=== PATIENT | female | born 1950 | race Hispanic/Latino ===

== ENCOUNTER 2017-01-28 15:07 | Emergency (ER) | payer MEDICARE, OTHER ==
[2017-01-28 15:13] VITALS: BP 130/85; PULSE 95; RESP 20; TEMP 98.3; O2SAT 100
--- NOTE | 2017-01-28 15:43 | C.PDOC ---
History Of Present Illness 66 year old female presents to the ED with complaints of yellow mucus, headache , dizziness, lethargy, and facial pain beginning two days ago. Patient states pain worsens with certain head movements. She also reports foul odor within her nose and mucus. Patient statates she went to her car bracer two days prior and had blood taken and waiting on the results of the blood work. She denies any fever, vomiting, or any other complaints at this time. Time Seen by Provider: 01/28/17 15:28 Chief Complaint (Nursing): Weakness/Neurological Deficit History/Exam Limitations: no limitations Onset/Duration Of Symptoms: Days Current Symptoms Are (Timing): Still Present Quality: "Pain" Associated Symptoms: denies: Photophobia, Blurred Vision Past Medical History Reviewed: Historical Data, Nursing Documentation, Vital Signs Vital Signs: Last Vital Signs Temp 98.3 F 01/28/17 15:12 Pulse 95 H 01/28/17 15:12 Resp 20 01/28/17 15:12 BP 130/85 01/28/17 15:12 Pulse Ox 100 01/28/17 16:09 - Medical History PMH: Asthma, HTN Family History: States: Unknown Family Hx - Social History Hx Alcohol Use: Yes Hx Substance Use: No Review Of Systems Constitutional: Positive for: Weakness. Negative for: Fever, Chills, Sweats ENT: Positive for: Nose Pain, Nose Discharge (yellow mucus), Other (facial pain) Cardiovascular: Negative for: Chest Pain Respiratory: Negative for: Cough, Shortness of Breath Gastrointestinal: Negative for: Nausea, Vomiting, Abdominal Pain, Diarrhea Musculoskeletal: Negative for: Neck Pain Skin: Negative for: Rash Neurological: Positive for: Headache, Dizziness Physical Exam - Physical Exam Appears: Non-toxic, No Acute Distress Skin: Warm, Dry Head: Atraumatic, Normacephalic Eye(s): bilateral: Normal Inspection, EOMI Ear(s): Bilateral: Normal Nose: Normal, Other (maxillary sinus tenderness) Oral Mucosa: Moist Tongue: Normal Appearing Lips: Normal Appearing Throat: Normal Neck: Normal ROM, Supple Chest: Symmetrical, No Deformity Cardiovascular: Rhythm Regular Respiratory: No Decreased Breath Sounds, No Accessory Muscle Use, No Rales, No Rhonchi, No Stridor, No Wheezing Gastrointestinal/Abdominal: Soft, No Tenderness, No Distention, No Guarding, No Rebound Extremity: Normal ROM, No Tenderness Neurological/Psych: Oriented x3, Normal Speech Gait: Steady ED Course And Treatment O2 Sat by Pulse Oximetry: 100 (room air) Pulse Ox Interpretation: Normal Medical Decision Making Medical Decision Making: Impression: 66 y.o female with frontal headache, facial pain and yellow mucus. Exam revealed maxillary sinus tenderness, otherwise normal neuro exam. Will treat clinically for sinusitis with doxycycline, patient is penicillin allergic. Advise decongestants and to use steam or neti pot. Disposition Counseled Patient/Family Regarding: Need For Followup, Rx Given - Disposition Referrals: Yeison Bolivar MD [Staff Provider] - Disposition: HOME/ ROUTINE Disposition Time: 15:40 Condition: STABLE Additional Instructions: You have sinus infection Take antibiotic twice daily Use nasal spray daily Try using hot steam/neti pot Follow up with your primary doctor Prescriptions: Doxycycline Hyclate 100 mg PO BID #13 capsule Fluticasone Propionate [Flonase] 1 spray NS DAILY #1 bottle Pseudoephedrine HCl [Sudafed] 30 mg PO Q6 #24 tablet Instructions: Sinusitis (ED) - POA Present On Arrival: None - Clinical Impression Clinical Impression: Sinusitis - Scribe Statement The provider has reviewed the documentation as recorded by the Scribe Mar Josehp All medical record entries made by the Scribe were at my direction and personally dictated by me. I have reviewed the chart and agree that the record accurately reflects my personal performance of the history, physical exam, medical decision making, and the department course for this patient. I have also personally directed, reviewed, and agree with the discharge instructions and disposition.
--- NOTE | 2017-01-28 15:44 | C.PDOC ---
Time Seen by Provider: 01/28/17 15:28 Chief Complaint (Nursing): Weakness/Neurological Deficit Past Medical History Vital Signs: Last Vital Signs Temp 98.3 F 01/28/17 15:12 Pulse 95 H 01/28/17 15:12 Resp 20 01/28/17 15:12 BP 130/85 01/28/17 15:12 Pulse Ox 100 01/28/17 15:12 - Medical History PMH: Asthma, HTN - Social History Hx Alcohol Use: Yes Hx Substance Use: No ED Course And Treatment O2 Sat by Pulse Oximetry: 100
== END 2017-01-28 16:05 | disposition home or self-care (01) ==
LOC: C.ER 15:07
DX: J32.9 Chronic sinusitis, unspecified (principal)

== ENCOUNTER 2017-03-27 10:50 | Day surgery (SDC) | payer MEDICARE, OTHER ==
[2017-03-15 11:40] VITALS: BMI 16.9
[2017-03-27] MEDS ORDERED: Midazolam 2 MG/2 ML VIAL ONE (16:19)
[2017-03-27] MEDS ORDERED: Propofol 10 mg/ml Inj (20 ML) ONE (16:19)
[2017-03-27] MEDS ORDERED: cefOXitin IV 1 gm in Dextrose 0 GM/0 ML BAG IVPB ONE (16:21)
[2017-03-27] MEDS ORDERED: Clindamycin 300 mg/2 ml Inj ONE (16:24)
[2017-03-27] MEDS ORDERED: ePHEDrine 50 mg/ml Inj ONE ×2 (16:37)
--- NOTE | 2017-03-27 17:05 | PCM.SURG1 ---
Surgeon's Initial Post Op Note - Surgeon's Notes Surgeon: Dr. Pelayo Drawer Waxer: none Type of Anesthesia: General LMA Anesthesia Administered By: Estefany VIRK Pre-Operative Diagnosis: 66 yo with Thickened endometrium, Postmenopausal bleeding Operative Findings: Av Uterus Post-Operative Diagnosis: Same as above Operation Performed: Hysteroscopy D and C , Attempted Myosure Specimen/Specimens Removed: emc, ecc Estimated Blood Loss: EBL {In ML}: 10 Blood Products Given: N/A Drains Used: No Drains Post-Op Condition: Good Date of Surgery/Procedure: 03/27/17 Time of Surgery/Procedure: 17:05
[2017-03-27] MEDS ORDERED: HYDROmorphone 0.5 mg/0.5 ml ISec IVP PRN (17:07)
[2017-03-27] MEDS ORDERED: Lactated Ringer's 1,000 ML IV SCH (17:15)
[2017-03-27 18:08] VITALS: O2SAT 97
[2017-03-27 18:35] VITALS: BP 111/69; PULSE 76; RESP 20; TEMP 98.2
--- NOTE | 2017-03-30 07:34 | OP ---
PROCEDURE DATE: 03/27/2017 PREOPERATIVE DIAGNOSES: A 66-year-old female, postmenopausal, with a thickened endometrium and postm enopausal spotting. POSTOPERATIVE DIAGNOSES: A 66-year-old female, postmenopausal, with a thickened endometrium and post menopausal spotting. PROCEDURE: Hysteroscopy, D and C, attempted MyoSure. SURGEON: Dr. Pelayo. ANESTHESIOLOGIST: Dr. Suarez. TYPE OF ANESTHESIA: General LMA. FINDINGS: An anteverted uterus approximately gestation. COMPLICATIONS: None. ESTIMATED BLOOD LOSS: 5 mL. INS AND OUTS: 100 mL. SPECIMEN: EMC, ECC. PROCEDURE: The patient was informed of the risk factors, benefits, and alternatives of the procedure . The risk factors included infection, bleeding, damage damage to surrounding organs and tissue, com plications from anesthesia and possible . Risk factors were explained but not limited to. The patient was informed of all the risks risk factors and an informed consent was obtained. She was the n taken to the operating room, prepped and draped in normal sterile fashion, and placed in a dorsal l ithotomy position. A weighted speculum was placed into the vagina. The anterior lip of the cervix w as then grasped with a single-tooth tenaculum. The uterus was gently sounded to approximately 6 cm. In that particular instance, the scope was then placed. A complete surveillance of the uterine cavi ty was then performed, and due to attempted MyoSure sure was unsuccessful. After complete surv eillance hysteroscopy and fractional D and C was then performed and EMC, ECC was submitted to p athology. Excellent hemostasis was noted. All instruments were removed from the vagina. Instrument s and lap count were correct x 2. The patient was then taken to the recovery room in [facility] n and instructed to follow up in the office in 2 weeks. Kiarra Pelayo MD cc: [id number] TT: 03/29/2017 20:37:58 dn
== END 2017-03-27 18:30 | disposition home or self-care (01) ==
LOC: C.SDS 10:50
PROVIDERS: ATTEND Obstetrics & Gynecology
DX: N84.0 Polyp of corpus uteri (principal); N95.0 Postmenopausal bleeding; E11.9 Type 2 diabetes mellitus without complications; I10 Essential (primary) hypertension; B18.2 Chronic viral hepatitis C
CPT/HCPCS: 58558; 88305; J2250; J2704; J3010